=== PATIENT | female | born 1955 | race Two or more races ===

== ENCOUNTER 2018-01-27 15:54 | Emergency (ER) | payer OTHER ==
[~2018-01-27] VITALS: Ht 167.6 cm; Wt 68.4 kg
[2018-01-27 16:02] VITALS: BP 160/97
[2018-01-27] MEDS ORDERED: PROPARACAINE OPHTH 0.5%, 15ML ONE (16:23)
== END 2018-01-27 17:58 | disposition home or self-care (01) ==
LOC: ED 17:55
DX: H43.12 Vitreous hemorrhage, left eye (principal)
CPT/HCPCS: 99282